=== PATIENT | female | born 1990 | race Caucasian/White ===

== ENCOUNTER 2016-11-22 00:25 | Emergency (ER) | payer BC, OTHER ==
[~2016-11-22] VITALS: Ht 157.5 cm; Wt 105.0 kg
[2016-11-22 00:33] VITALS: BP 149/104; PULSE 90; RESP 16; TEMP 98; O2SAT 96
[2016-11-22] MEDS ORDERED: EFFE150C PO (01:29)
[2016-11-22] MEDS ORDERED: DEPA500T3 PO (01:29)
[2016-11-22] MEDS ORDERED: CLON1TAB PO (01:29)
[2016-11-22] MEDS ORDERED: LAMI200T PO (01:29)
[2016-11-22] MEDS ORDERED: LEVE500 PO (01:29)
[2016-11-22] MEDS ORDERED: SERO300T PO (01:29)
[2016-11-22] MEDS ORDERED: COUM4TAB PO ×2 (01:31)
[2016-11-22] MEDS ORDERED: COUM3TAB PO (01:31)
--- NOTE | 2016-11-22 01:50 | PD ---
HPI Chief Complaint: Psychiatric Symptoms Time Seen by Provider: 01:44 Travel History International Travel<30 days: No Contact w/Intl Traveler<30days: No Traveled to known affect area: No History of Present Illness HPI 26-year-old white female presents to emergency department for psychological evaluation under Chan act. The patient was transferred here from [facility] because the patient was outside the scope of practice due to her Coumadin use. The patient states that she takes Coumadin because she has had a prior stroke. She has no residual deficit except for some slight memory loss. She associates this with control that she had been taking. She is off this now. She does not drink, smoke or do drugs. She states that she had gotten upset with her father and had made suicidal statements. She states that she is not truly suicidal. She has no intent on hurting herself or hurting anyone. She was merely upset. She hopes to be medically cleared and then be discharged home again in the morning by the psychiatrist. PFSH Past Medical History Narrative Medical Anxiety, depression, bipolar, CVA, obesity Bipolar Disorder: Yes Anxiety: Yes Depression: Yes Cerebrovascular Accident: Yes Diminished Hearing: Yes (R [place]) Tetanus Vaccination: > 5 Years Influenza Vaccination: No ?: Not LMP: 11/02 Past Surgical History Narrative Surgical Gastric sleeve Abdominal Surgery: Yes (BARIATRIC) Oral Surgery: Yes (ADENOIDS REMOVAL) Social History Alcohol Use: No Tobacco Use: No Substance Use: No Allergies-Medications (Allergen,Severity, Reaction): Coded Allergies: Imitrex (Verified Allergy, Unknown, 11/22/16) Vistaril (Verified Allergy, Unknown, 11/22/16) Reported Meds & Prescriptions Reported Meds & Active Scripts Active Reported Coumadin (Warfarin) 4 Mg Tab 4 Mg PO SAT AND SUN Coumadin (Warfarin) 4 Mg Tab 4 Mg PO DAILY Coumadin (Warfarin) 3 Mg Tab 3 Mg PO MON-FRI Seroquel (Quetiapine Fumarate) 300 Mg Tab 300 Mg PO HS Clonazepam 1 Mg Tab 1 Mg PO TID Keppra (Levetiracetam) 500 Mg Tab 500 Mg PO BID Lamictal (Lamotrigine) 200 Mg Tab 200 Mg PO BID Effexor XR 24 HR (Venlafaxine HCl) 150 Mg Cap 375 Mg PO DAILY Depakote ER (Divalproex Sodium) 500 Mg Dario 500 Mg PO DAILY Review of Systems Except as stated in HPI: all other systems reviewed are Neg Psychiatric: Positive: Depression, Mood Disorder, No: Anxiety, Suicidal Ideations, Disorder of Thought, Substance Abuse, Homicidal Ideation Physical Exam Narrative GENERAL: Well-nourished, well-developed patient. SKIN: Warm and dry. Patient has a few areas of ecchymosis to her upper extremities from alleged fall earlier. HEAD: Normocephalic and atraumatic. EYES: No scleral icterus. No injection or drainage. ENT: No nasal drainage noted. Mucous membranes pink. Airway patent. NECK: Supple, trachea midline. Moves head freely without obvious discomfort. CARDIOVASCULAR: Regular rate and rhythm without murmurs, gallops, or rubs. RESPIRATORY: Breath sounds equal bilaterally. No accessory muscle use. GASTROINTESTINAL: Abdomen soft, non-tender, nondistended. EXTREMITIES: No cyanosis or edema. BACK: Nontender without obvious deformity. No CVA tenderness. NEURO: Patient is alert and oriented. no sensorimotor deficits. Nonfocal. Normal speech. PSYCH: No delusions. No auditory or visual hallucinations. Data Data Last Documented VS Vital Signs Date Time Temp Pulse Resp B/P Pulse Ox O2 Delivery O2 Flow Rate FiO2 11/22/16 02:31 98.1 82 14 140/80 98 Room Air Orders Complete Blood Count With Diff (11/22/16 00:37) Comprehensive Metabolic Panel (11/22/16 00:37) Ed Urine Pregnancytest Poc (11/22/16 00:37) Psych Screen (11/22/16 00:37) Drug Screen, Random Urine (11/22/16 00:37) Alcohol (Ethanol) (11/22/16 00:37) Salicylates (Aspirin) (11/22/16 00:37) Tylenol (Acetaminophen) (11/22/16 00:37) Prothrombin Time / Inr (Pt) (11/22/16 00:38) Valproic Acid (Depakene) (11/22/16 01:24) Labs Laboratory Tests Test 11/22/16 01:24 White Blood Count 9.3 TH/MM3 Red Blood Count 4.64 MIL/MM3 Hemoglobin 11.5 GM/DL Hematocrit 35.5 % Mean Corpuscular Volume 76.5 FL Mean Corpuscular Hemoglobin 24.8 PG Mean Corpuscular Hemoglobin 32.4 % Concent Red Cell Distribution Width 15.5 % Platelet Count 435 TH/MM3 Mean Platelet Volume 8.5 FL Neutrophils (%) (Auto) 67.1 % Lymphocytes (%) (Auto) 21.1 % Monocytes (%) (Auto) 9.9 % Eosinophils (%) (Auto) 0.2 % Basophils (%) (Auto) 1.7 % Neutrophils # (Auto) 6.2 TH/MM3 Lymphocytes # (Auto) 2.0 TH/MM3 Monocytes # (Auto) 0.9 TH/MM3 Eosinophils # (Auto) 0.0 TH/MM3 Basophils # (Auto) 0.2 TH/MM3 CBC Comment AUTO DIFF Differential Comment AUTO DIFF CONFIRMED Platelet Estimate NORMAL Platelet Morphology Comment NORMAL Prothrombin Time 12.3 SEC Prothromb Time International 1.1 RATIO Ratio Sodium Level 142 MEQ/L Potassium Level 4.1 MEQ/L Chloride Level 108 MEQ/L Carbon Dioxide Level 26.9 MEQ/L Anion Gap 7 MEQ/L Blood Urea Nitrogen 7 MG/DL Creatinine 0.67 MG/DL Estimat Glomerular Filtration 106 ML/MIN Rate Random Glucose 87 MG/DL Calcium Level 8.8 MG/DL Total Bilirubin 0.4 MG/DL Aspartate Amino Transf 15 U/L (AST/SGOT) Alanine Aminotransferase 23 U/L (ALT/SGPT) Alkaline Phosphatase 73 U/L Total Protein 7.3 GM/DL Albumin 3.6 GM/DL Salicylates Level LESS THAN 1.7 MG/DL Acetaminophen Level LESS THAN 2.0 MCG/ML Valproic Acid (Depakene) Level 8 MCG/ML Ethyl Alcohol Level 3 MG/DL [facility] Medical Decision Making Medical Screen Exam Complete: Yes Emergency Medical Condition: Yes Medical Record Reviewed: Yes Interpretation(s) Laboratory Tests Test 11/22/16 01:24 White Blood Count 9.3 TH/MM3 Red Blood Count 4.64 MIL/MM3 Hemoglobin 11.5 GM/DL Hematocrit 35.5 % Mean Corpuscular Volume 76.5 FL Mean Corpuscular Hemoglobin 24.8 PG Mean Corpuscular Hemoglobin 32.4 % Concent Red Cell Distribution Width 15.5 % Platelet Count 435 TH/MM3 Mean Platelet Volume 8.5 FL Neutrophils (%) (Auto) 67.1 % Lymphocytes (%) (Auto) 21.1 % Monocytes (%) (Auto) 9.9 % Eosinophils (%) (Auto) 0.2 % Basophils (%) (Auto) 1.7 % Neutrophils # (Auto) 6.2 TH/MM3 Lymphocytes # (Auto) 2.0 TH/MM3 Monocytes # (Auto) 0.9 TH/MM3 Eosinophils # (Auto) 0.0 TH/MM3 Basophils # (Auto) 0.2 TH/MM3 CBC Comment AUTO DIFF Differential Comment AUTO DIFF CONFIRMED Platelet Estimate NORMAL Platelet Morphology Comment NORMAL Prothrombin Time 12.3 SEC Prothromb Time International 1.1 RATIO Ratio Sodium Level 142 MEQ/L Potassium Level 4.1 MEQ/L Chloride Level 108 MEQ/L Carbon Dioxide Level 26.9 MEQ/L Anion Gap 7 MEQ/L Blood Urea Nitrogen 7 MG/DL Creatinine 0.67 MG/DL Estimat Glomerular Filtration 106 ML/MIN Rate Random Glucose 87 MG/DL Calcium Level 8.8 MG/DL Total Bilirubin 0.4 MG/DL Aspartate Amino Transf 15 U/L (AST/SGOT) Alanine Aminotransferase 23 U/L (ALT/SGPT) Alkaline Phosphatase 73 U/L Total Protein 7.3 GM/DL Albumin 3.6 GM/DL Salicylates Level LESS THAN 1.7 MG/DL Acetaminophen Level LESS THAN 2.0 MCG/ML Valproic Acid (Depakene) Level 8 MCG/ML Ethyl Alcohol Level 3 MG/DL Differential Diagnosis MDM: High Differential diagnoses: Schizophrenia, schizoaffective disorder, bipolar, anxiety, depression, adjustment reaction, mood disorder NOS, ODD, depressive disorder NOS, dementia, dementia with agitation, psychosis NOS, substance induced mood disorder, intermittent explosive disorder, Asperger syndrome, infection,electrolyte abnormality, malingering. Narrative Course Mental health screening discussed with the patient. Psychiatric screen ordered. The patient is been medically cleared. This is bipolar Diagnosis Primary Impression: Medical clearance for psychiatric admission Additional Impression: Bipolar 1 disorder Condition: Stable Raghu Rothman Nov 22, 2016 01:50
[2016-11-22 01:57] LABS: AUTOMATED NEUTROPHIL # 6.2 TH/MM3 (1.8-7.7); BASOPHIL # 0.2 TH/MM3 (0-0.2); BASOPHIL % 1.7 % (0.0-2.0); EOSINOPHIL % 0.2 % (0.0-4.0); HEMATOCRIT 35.5 % (35.0-46.0); LYMPH % 21.1 % (9.0-44.0); MEAN CELL VOLUME 76.5 FL (80.0-100.0); MEAN CORPUSCULAR HEMOGLOBIN 24.8 PG (27.0-34.0); MEAN CORPUSCULAR HGB CONC 32.4 % (32.0-36.0); MONO % 9.9 % (0.0-8.0); NEUT % 67.1 % (16.0-70.0); PLATELET COUNT 435 TH/MM3 (150-450); RED BLOOD COUNT 4.64 MIL/MM3 (4.00-5.30); RED CELL DISTRIBUTION WIDTH 15.5 % (11.6-17.2); WHITE BLOOD COUNT 9.3 TH/MM3 (4.0-11.0)
[2016-11-22 01:58] LABS: HEMO FLAGS AUTO DIFF
[2016-11-22 02:03] LABS: ALT (GPT) 23 U/L (10-53); ANION GAP 7 MEQ/L (5-15); AST (GOT) 15 U/L (15-37); BICARBONATE 26.9 MEQ/L (21.0-32.0); BLOOD UREA NITROGEN 7 MG/DL (7-18); CHLORIDE 108 MEQ/L (98-107); GLOMERULAR FILTRATION RATE 106 ML/MIN (>89); INTERNATIONAL NORMALIZED RATIO 1.1 RATIO; POTASSIUM 4.1 MEQ/L (3.5-5.1); PROTHROMBIN TIME - PATIENT 12.3 SEC (9.8-11.6); SODIUM (NA) 142 MEQ/L (136-145)
[2016-11-22 02:06] LABS: ACETAMINOPHEN LESS THAN 2.0 MCG/ML (10.0-30.0); ALKALINE PHOSPHATASE 73 U/L (45-117); TOTAL BILIRUBIN ADULT 0.4 MG/DL (0.2-1.0)
[2016-11-22 02:31] VITALS: BP 140/80; PULSE 82; RESP 14; TEMP 98.1; O2SAT 98
[2016-11-22 02:32] LABS: SCAN/DIFF AUTO DIFF CONFIRMED
[2016-11-22 02:33] LABS: PLATELET ESTIMATE SMEAR NORMAL (NORMAL); PLATELET MORPHOLOGY NORMAL (NORMAL)
[2016-11-22 10:00] VITALS: BP 131/95; PULSE 100; RESP 18; TEMP 99; O2SAT 99
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
== END 2016-11-22 13:53 | disposition home or self-care (01) ==
LOC: NEPD 00:25 → NEPJ 13:53
DX: F31.9 Bipolar disorder, unspecified (principal); F41.9 Anxiety disorder, unspecified
CPT/HCPCS: 80053; 80164; 80307; 84703; 85025; 85610; 99284